=== PATIENT | male | born 1970 | race Caucasian/White ===

== ENCOUNTER 2016-11-23 04:34 | Emergency (ER) | payer BC ==
[~2016-11-23] VITALS: Ht 177.8 cm; Wt 86.2 kg
[2016-11-23 04:45] VITALS: BP 142/99
[2016-11-23] MEDS ORDERED: METH35.4 TP (04:58)
[2016-11-23] MEDS ORDERED: NAPR-695 PO (04:58)
--- NOTE | 2016-11-23 04:59 | PHYS DOC ---
Past Medical History Past Medical History: No Pertinent History Past Surgical History: Other Additional Past Surgical Histo: L. KNEE Alcohol Use: Occasionally Drug Use: None Adult General Chief Complaint Chief Complaint: LOWER BACK PAIN OR INJURY HPI HPI Patient is a 46 year old male with a history of right-sided sciatica presents with complaints of right lower back pain and sciatic nerve pain after mowing the lower yesterday for 4 hours patient started experiencing some mild spasms and pain in the same distribution as previous pain. Patient denies any incontinence or retention or saddle anesthesia. Patient denies any direct trauma. No fevers chills vomiting diarrhea or rashes. Patient is able to bear weight and ambulate but is limited by pain Review of Systems Review of Systems Constitutional: Denies fever or chills [] Eyes: Denies change in visual acuity, redness, or eye pain [] HENT: Denies nasal congestion or sore throat [] Respiratory: Denies cough or shortness of breath [] Cardiovascular: No chest pain GI: Denies abdominal pain, nausea, vomiting, bloody stools or diarrhea [] : Denies dysuria or hematuria [] Musculoskeletal: Denies back pain or joint pain [] Integument: Denies rash or skin lesions [] Neurologic: Denies headache, focal weakness or sensory changes [] Allergies Allergies Allergies Coded Allergies Type Severity Reaction Last Updated Verified No Known Drug Allergies 11/23/16 No Physical Exam Physical Exam Constitutional: Well developed, well nourished, no acute distress, non-toxic appearance. [] HENT: Normocephalic, atraumatic, oropharynx moist, no oral exudates, nose normal. [] Eyes: , EOMI, conjunctiva normal, no discharge. [] Neck: Normal range of motion, no tenderness, supple, no stridor. [] Cardiovascular:Heart rate regular rhythm, no murmur [] Lungs & Thorax: No respiratory distress, no tachypnea Abdomen: Bowel sounds normal, soft, no tenderness, no masses, no pulsatile masses. [] Skin: Warm, dry, no erythema, no rash. [] Back: Right low back tenderness and tenderness at the right sciatic notch. No midline tenderness no step-offs Extremities: No tenderness, no cyanosis, no clubbing, ROM intact, no edema. [] Neurologic: Alert and oriented X 3, normal motor function but limited by pain on the right lower extremity, normal sensory function, no focal deficits noted. [] Psychologic: Affect normal, judgement normal, mood normal. [] Current Patient Data Vital Signs Vital Signs Date Time Temp Pulse Resp B/P (MAP) Pulse Ox O2 Delivery O2 Flow Rate FiO2 11/23/16 04:45 97.9 99 20 142/99 (113) 97 Room Air 97.9 EKG EKG [] Radiology/Procedures Radiology/Procedures [] Course & Med Decision Making Course & Med Decision Making Pertinent Labs and Imaging studies reviewed. (See chart for details) [] Dragon Disclaimer Dragon Disclaimer This electronic medical record was generated, in whole or in part, using a voice recognition dictation system. Departure Departure Impression: Primary Impression: Sciatica Additional Impression: Low back pain Disposition: HOME, SELF-CARE Condition: STABLE Patient Instructions: Back Exercises, [id number], Back Injury Prevention, Back Pain in , Sciatica Additional Instructions: Please follow-up with your doctor for recheck and reevaluation in one to 2 days. If your symptoms worsen or just started experiencing urinary retention or incontinence or skin physical incontinence or numbness around your rectum and genital area please return to the ED immediately Scripts Methyl Salicylate/Menthol (ICY HOT CREAM) 35.4 Gm Cream..g. 35.4 GM TP BID for 5 Days, #10 EACH apply to right lower back and right buttock Prov: Becky ESPINOZA MD 11/23/16 Naproxen (NAPROXEN) 375 Mg Tablet 1 TAB PO TID for 7 Days, #21 TAB 5 Refills Prov: Becky ESPINOZA MD 11/23/16 Problem Qualifiers Becky ESPINOZA MD Nov 23, 2016 04:59
[2016-11-23] MEDS ORDERED: ORPHENADRINE CITRATE 60 MG/2 ML VIAL. IM ONE (05:30)
[2016-11-23] MEDS ORDERED: KETOROLAC 60 MG/2 ML INJ. IM ONE (05:30)
== END 2016-11-23 05:29 | disposition home or self-care (01) ==
LOC: ER 04:34
DX: M54.41 Lumbago with sciatica, right side (principal)
CPT/HCPCS: 96372; 99284; J1885; J2360